=== PATIENT | male | born 1955 | race Caucasian/White ===

== ENCOUNTER 2017-03-27 13:28 | Emergency (ER) | payer OTHER ==
[~2017-03-27] VITALS: Ht 172.7 cm; Wt 83.9 kg
[2017-03-27 13:43] LABS: HEMOGLOBIN 15.6 g/dL (14.1-18.0)
--- NOTE | 2017-03-27 13:51 | Emergency Room Report ---
See Addendum History of Present Illness Time Seen by 1340 Presenting Problem in Triage Pt arrived:Walked Presenting Problem:PT REPORTS L SIDED LOWER ABD PAIN WITH FREQUENT URINATION. 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 N Clinical Suspician of Infection? N Mental Status: 1 - Regular (Normal Baseline) Sepsis Risk:Low Sepsis Risk Have you (or family members/close friends) recently traveled outside the [place]? N If Yes, where/when: Have you had exposure to infectious disease within the past month? N TB? Other? Specify: Source patient, RN notes reviewed Exam Limitations no limitations Comment Comes to the ED with LLQ abdominal pain that started yesterday and is worse today. He has had many stones and passed most but has had lithotripsy X 5 He also has type 2 DM, HTN, and CAD Cardiac Chest Pain Chest pain indicative of cardiac No ALLERGIES Coded Allergies: Penicillins (Intermediate, I-RASH 07/03/16) Home Medications Active Scripts PROMETHAZINE HCL (Phenergan 25MG Tab (Geq)) 25 MG PO Q4HP PRN nausea/vomiting #20 TAB Prov: 10/15/13 Reported Medications Aspirin (Aspirin EC) 81 MG PO DAILY #30 CLOPIDOGREL BISULFATE (Clopidogrel) 75 MG PO DAILY #30 Atorvastatin Calcium 80 MG PO QHS #30 METFORMIN HCL (Metformin) 500 MG PO BIDD LISINOPRIL (Lisinopril) 10 MG PO DAILY Nifedipine (Nifedipine ER) 60 MG PO DAILY #30 Carvedilol 3.125 MG PO BIB #60 Famciclovir (Famciclovir 500MG) 500 MG PO BID PRN OUTBREAK Naproxen Sodium (Aleve) 220 MG PO BID Acetaminophen (Arthritis Pain) 650 MG PO BID Diclofenac Sodium 100 GM TP QID History Medical History General CAD? Yes Angina: No DC: Yes Hypertension? Yes Hyperlipidemia? Yes CHF? No DVT? No PE? No COPD? No Asthma? No Anemia? No GERD? No Gastric ulcers? No GI Bleed? No Hernia? No Thyroid Problems? No Hypothyroidism? No CVA? No Seizures? No Diabetes? Yes Insulin Dependent: No Insulin Pump: No Home FSBS? No Renal Insuffiency? No End Stage Renal Disease? No UTI? No Stones? Yes BPH? No GB Disease: No Nephritic Syndrome? No Asplenia? No Hepatitis? No Sickle Cell Disease? No Arthritis? No Migraines? No Cataracts? No Glaucoma? No MRSA? No HIV? No TB? No Anxiety? No Depression? No Cancer? No More? No Immunization Hx DT/Tetanus 1-4 YRS Flu NEVER Pneumonia NEVER Surgical Hx Previous Surgery?Y LITHOTRIPSY Orthopedic HEART CATH 11/02 HEART STENTS R CORONARY ARTERY Family History Family Hx Diabetes Yes CAD Yes Hypertension Yes Hyperlipidemia No Cancer Yes TB No Social History Smoking Hx Smoker: Current Every Day Smoker Tobacco: Yes Type Cigarettes Packs/day < 1 Pack Alcohol Alcohol: No Review of Systems All Other Systems Reviewed and Negative Constitutional see HPI Cardiovascular see HPI Gastrointestinal see HPI Genitourinary see HPI. Physical Exam Vital Signs Vital Signs Date Time Temp Pulse Resp B/P Pulse O2 O2 Flow FiO2 Ox Delivery Rate 03/27 1438 18 03/27 1343 18 03/27 1339 18 03/27 1328 97.6 74 18 175/87 97 General Appearance moderate distress (with left flank pain) Respiratory Status No: respiratory distress. Cardiovascular normal exam, regular rate/rhythm Gastrointestinal left flank and LLQ pain Neurologic alert, manager clinical applications II-XII nml as tested Medical Decision Making LABS/Meds/Orders Pt receiving controlled substance in ED? Yes Ry was queried for this patient? Yes Reference #: [id number] Risks/benefits of using a controlled substance for treatment were not discussed w/pt Results/Orders Laboratory Tests 03/27/17 1325: Sodium 142, Potassium 3.9, Chloride 105, Carbon Dioxide 26, BUN 30 H, Creatinine 1.6 H, Estimated Creat Clear 57, Estimated GFR (MDRD) 44, Glucose 193 H, Calcium 10.1, Total Bilirubin 0.6, AST 19, ALT 58, Alkaline Phosphatase 87, Total Protein 7.6, Albumin 4.6, Globulin 3.0, Albumin/Globulin Ratio 1.5, WBC 12.9 H, RBC 4.94, Hgb 15.6, Hct 47.0, MCV 95.2, RDW 12.3, Plt Count 174, MPV 7.6, Gran % 84.6 H, Gran # 10.9 H, Lymphocytes % 8.0 L, Monocytes % 5.0, Eosinophils % 2.1, Basophils % 0.3, Lymphocytes # 1.0, Monocytes # 0.7, Eosinophils # 0.3, Basophils # 0.0, PUBS MCHC 33.2, MCH 31.6 H Current Medication Orders Sig/Richa Start time Last Medication Dose Route Stop Time Status Admin Hydromorphone HCl 1 MG ONCE ONE 03/27 1445 AC 03/27 IV 03/27 1446 1438 Promethazine HCl 12.5 MG ONCE ONE 03/27 1445 AC 03/27 IV 03/27 1446 1436 Sodium Chloride 25 ML ONCE ONE 03/27 1445 AC 03/27 IV 03/27 1459 1439 Sodium Chloride 1,000 ML .Q1H1M 03/27 1445 AC 03/27 IV 03/27 1545 1436 Sodium Chloride 10 ML PRN PRN 03/27 1445 AC IV 03/28 1432 Promethazine HCl 0 .STK-MED ONE 03/27 1434 DC .ROUTE Sodium Chloride 25 ML .STK-MED ONE 03/27 1434 DC IV Sodium Chloride 1,000 ML .STK-MED ONE 03/27 1434 DC IV Hydromorphone HCl 0 .STK-MED ONE 03/27 1433 DC .ROUTE Ketorolac 30 MG ONCE ONE 03/27 1345 DC 03/27 Tromethamine IV 03/27 1346 1339 Morphine Sulfate 4 MG ONCE ONE 03/27 1345 DC 03/27 IV 03/27 1346 1343 Morphine Sulfate 0 .STK-MED ONE 03/27 1342 DC .ROUTE Ondansetron HCl 4 MG ONCE ONE 03/27 1330 DC 03/27 IV 03/27 1331 1330 Sodium Chloride 10 ML PRN PRN 03/27 1330 AC IV 03/28 1330 Sodium Chloride 1,000 ML .Q1H1M 03/27 1330 DC 03/27 IV 03/27 1430 1330 Sodium Chloride 10 ML PRN PRN 03/27 1330 AC IV 03/28 1330 Orders Procedure Date/time Status DIET-NOTHING BY MOUTH 03/[address] ABD/PELVIS REQ 03/27 1331 Complete IV SALINE LOCK 03/27 1331 Active URINALYSIS/COMPLETE 03/27 1331 Active CBC WITH AUTO DIFF 03/27 133 Complete CHEM 12 PROFILE 03/27 133 Complete Departure Departure Time of Disposition 1435 Disposition DC Home or Self Care(routine) Clinical Impression Primary Impression: Nephrolithiasis Secondary Impressions: Chronic kidney disease, stage 3, Ureterolithiasis Condition STABLE Patient Instructions DI for Kidney Stones, Kidney Stones (Alternative Therapy), Kidney Stones -- Adult Additional Instructions Drink lots of fluids and take meds as directed. If pain will not go away, return to the ED immediately or followup with Kidney specialist, Urologist Discharge Counseling Counseled pt/family regarding diagnosis, test results, medications/RX, home care, follow up needs Prescriptions Current Visit Scripts TAMSULOSIN HCL (Flomax) 0.4 MG PO QHS #30 CAP OXYCODONE HCL (Oxycodone) 5 MG NG Q4HP PRN pain #18 TAB ED Critical Care Critical Care No If Critical Care minutes are documented, the time involved in the performance of seperately reportable procedures was not counted toward critical care time documented. I directly delivered medical care to this critically ill and/or injured patient. Timely evaluation and treatment was necessary to address the significant organ system(s) dysfunction present in this patient. at 1447
--- NOTE | 2017-03-27 14:17 | RADIOLOGY REPORT PS360 ---
CT ABD PELVIS W/O CONTRAST COMPARISON: CT scan abdomen pelvis stone protocol 07/03/2016 HISTORY: Lower quadrant pain, history of kidney stones TECHNIQUE: Altered axial scans obtained from hemidiaphragms the pelvic floor and were performed without IV or oral contrast. Sagittal coronal reformats were evaluated as well. FINDINGS: The lower lung kasper are clear. The liver spleen and pancreas appear grossly normal. The stomach is somewhat distended with ingested food particles and fluid but otherwise appears normal. Gallbladder is normal. The left adrenal gland is normal, there is a small hypodense cystic-appearing lesion right adrenal gland and this was noted previously. The kidneys are normal in size but there is mild swelling of the left kidney. There is prominent stranding of Gerota's fascia around the left kidney. There are multiple nonobstructing calculi in the lower mid and upper pole calyces. There is moderate hydronephrosis and hydroureter down to the level of the L4 vertebral body where there are 2 calculi largest measuring 8 mm, the smaller one which is superior measuring 5 mm. There are tiny nontracking calculi in the right kidney. Small bowel is normal, the appendix is normal. There is minimal scattered stool throughout the colon. There is mild diffuse diverticulosis of the sigmoid colon without evidence of diverticulitis. The urinary bladder and prostate appear normal. There is a small high density focus in the proximal small bowel loop right side probably an undigested medication. There are prominent hypertrophic facet changes of lower lumbar spine involving levels L3-4 through L5-S1 bilaterally. IMPRESSION: Moderately severe hydronephrosis and hydroureter left side secondary to 2 calculi in the proximal left ureter at approximately the level of the L4 vertebral body. Several tiny nonobstructing calculi noted right kidney 2. Mild diffuse diverticulosis sigmoid colon without diverticulitis
[2017-03-27 16:08] LABS: URINE BILIRUBIN - DIPSTICK NEGATIVE (NEG); URINE BLOOD TRACE-INTACT (NEG)
[2017-03-27 16:32] LABS: URINE SQUAMOUS CELLS OCC #/hpf (OCC)
[2017-03-27 17:24] VITALS: BP 125/62
--- OUTSIDE RECORDS SUMMARY | 2017-04-06 03:45 | External Medical Summary Rpt ---
Author Author [facility] Organization [facility] Address Unknown Phone Unavailable Care Team Providers Care Landing Man Name Role Phone Amaury ATKINSON PCP [phone] Encounter [facility] Date(s): 07/14/16 - 07/14/16 [facility] [address] [place] [id number]- Discharge Disposition: OP Self Care or Home Attending Physician: CHANTLE ALEX MD-URO Admitting Physician: CHANTEL ALEX MD-URO Referring Physician: CHANTEL ALEX MD-URO Reason for Visit CALCULUS OF KIDNEY Vital Signs No data available for this section Problem List Condition Effective Status Health Informant Dates Status Diabetes(Con Active firmed) HTN Active (hypertensio n)(Confirmed ) Kidney Active stones(Confi rmed) Allergies, Adverse Reactions, Alerts Substance Reaction Severity Status penicillin dizziness Active dizziness Medications No data available for this section Results No data available for this section Immunizations No data available for this section Procedures No data available for this section Social History Social History Response Type Smoking Status Current every day smoker Assessment and Plan No data available for this section Hospital Discharge Instructions No data available for this section
--- OUTSIDE RECORDS SUMMARY | 2017-04-06 03:45 | External Medical Summary Rpt ---
Author Author [facility] Organization [facility] Address Unknown Phone Unavailable Care Team Providers Care Freelance Patternmaker Name Role Phone Amaury ATKINSON PCP [phone] Encounter [facility] Date(s): 07/22/16 - 07/22/16 [facility] [address] [place] [id number]- Discharge Disposition: OP Self Care or Home Attending Physician: CHANTEL ALEX MD-URO Admitting Physician: CHANTEL ALEX MD-URO [...]
--- OUTSIDE RECORDS SUMMARY | 2017-04-06 03:45 | External Medical Summary Rpt ---
Author Author [facility] Organization [facility] Address Unknown Phone Unavailable Care Team Providers Care Support Clerk Name Role Phone Amaury ATKINSON PCP [phone] Encounter [facility] Date(s): 07/14/16 - 07/14/16 [facility] [address] [place] [address]- Discharge Disposition: OP Self Care or Home [...]
--- OUTSIDE RECORDS SUMMARY | 2017-04-06 03:45 | External Medical Summary Rpt ---
Author Author [facility] Organization [facility] Address Unknown Phone Unavailable Care Team Providers Care Street Engineer Name Role Phone Amaury ATKINSON PCP [phone] Encounter [facility] Date(s): 07/22/16 - 07/22/16 [facility] [address] [place] [address]- Discharge Disposition: OP Self Care or Home [...]
--- OUTSIDE RECORDS SUMMARY | 2017-04-06 03:47 | External Medical Summary Rpt | CCD ---
Author Author , GEORGE VAZQUEZ Address Unknown Phone [email or web address] Care Team Providers Care Production Support Manager Name Role Phone Chad Mariscal III, MD, Chad Escamilla III, MD Purpose Continuity of Care Document - 05-30-2013 through 2016 Problems Code Diagnosis DOS Provider Status 592.0 592.0 05-30-2013 Lazaro CALCIVAN OF [facility] Allergies, Adverse Reactions, Alerts Type Drug Allergy Adverse Reaction to Substance Substance Reaction Severity Penicillin Unknown Unknown Penicillin G Unknown Unknown Medications Na ND Rx Da Fi Fi Am Da Di Ph RX Ph St me C No te ll ll ou ys ag ar # ys at rm s nt no ma ic us Or Da si cy ia de te s n re d Sa 63 12 0 No li 80 -0 ne 70 5- Lo 10 20 ng Fl 07 13 er us 5 h Ac 10 ti ML ve Sy ri ng e KE 00 12 0 No TO 40 -0 RO 93 5- Lo LA 79 20 ng C 50 13 er 30 1 Ac MG ti /M ve L AL ON 00 12 0 No DA 64 -0 NS 16 5- Lo ET 08 20 ng RO 02 13 er N 5 HC Ac L ti 4 ve MG /2 ML AL Vital Signs 05-30-2013 13:44 Name Value Interpretat Reference Comment ion Range BP 88 mm[Hg] Diastolic BP Systolic 147 mm[Hg] Heart 94 /min Rate/Pulse O2% 94 % Respiratory 20 /min Rate 05-30-2013 11:57 Name Value Interpretat Reference Comment ion Range BP 95 mm[Hg] Diastolic BP Systolic 167 mm[Hg] Heart 82 /min Rate/Pulse O2% 96 % Respiratory 18 /min Rate Results Labs Lab Lab Date Result Refere Interp Status Commen Order Detail nces retati t Range on Urinalysis dipstick W Reflex Microscopic panel in Urine (03-27-2017 16:00) Bacteri TRACE O complet a 017 ed [Presen 16:00 ce] in Urine sedimen t by Light microsc opy Erythro 5-10 0 complet cytes 017 ed [Presen 16:00 ce] in Urine sedimen t by Light microsc opy Epithel OCC OCC complet ial 017 ed cells.s 16:00 quamous [Presen ce] in Urine sedimen t by Microsc opy high power field Urinalysis dipstick W Reflex Microscopic panel in Urine (03-27-2017 16:00) Appeara CLEAR CLEAR complet nce of 017 ed Urine 16:00 Bilirub NEGATIV NEG complet in 017 E ed [Presen 16:00 ce] in Urine by Test strip Erythro TRACE-I NEG complet cytes 017 NTACT ed [Presen 16:00 ce] in Urine Color STRAW YELLOW complet of 017 ed Urine 16:00 Ketones NEGATIV NEG complet 017 E ed [Presen 16:00 ce] in Urine by Automat ed test strip Mucus NEGATIV NEG complet [Presen 017 E ed ce] in 16:00 Urine sedimen t by Light microsc opy Nitrite NEGATIV NEG complet 017 E ed [Presen 16:00 ce] in Urine by Test strip Urobili 0.2 NEG complet nogen 017 ed [Presen 16:00 ce] in Urine by Test strip Bas Metab 1999 Pnl SerPl (01-04-2017 11:10) Comment: Meter: [id number] Marketing Automation Manager: [id number] [place] Glucose 122 70-130 complet BldC 017 mg/dL ed Glucomt 11:10 r-mCnc ACT Bld (01-04-2017 10:35) ACT Bld 301 82-152 complet 017 Seconds ed 10:35 Comment: Serial Number: [id number]: [id number] ACT Bld (01-04-2017 10:22) ACT Bld 257 82-152 complet 017 Seconds ed 10:22 Comment: Serial Number: [id number]: [id number] Bas Metab 2000 Pnl SerPl (01-04-2017 07:38) Comment: Meter: [id number] Marketing Automation Manager: [id number] [place] Glucose 117 70-130 complet BldC 017 mg/dL ed Glucomt 07:38 r-mCnc Hgb A1c Bld (01-04-2017 07:22) Comment: The [place] [employer] recommends maintenance of Hemoglobin A1C at 7.0% or lower. Goals for Hemoglobin A1C reduction may need to be modified if hypoglycemia is a problem. Hgb A1c 7.30 % 4.80-5. complet MFr 017 60 ed Bld 07:22 Lipid pnl with direct LDL SerPl (01-04-2017 07:22) Comment: Cholesterol Reference Ranges: Comment: Desirable < 200 mg/dL Comment: Borderline 200-239 mg/dL Comment: High Risk > 239 mg/dL Comment: Comment: Triglyceride Reference Ranges: Comment: Normal < 150 mg/dL Comment: Borderline 150-199 mg/dL Comment: High 200-499 mg/dL Comment: Very High > 499 mg/dL Comment: Comment: HDL Reference Ranges: Comment: Low < 40 mg/dL Comment: High > 59 mg/dL Comment: Comment: LDL Reference Ranges: Comment: Optimal < 100 mg/dL Comment: Near Optimal 100-129 mg/dL Comment: Borderline 130-159 mg/dL Comment: High 160-189 mg/dL Comment: Very High > 189 mg/dL Articho 28 0-130 complet ke IgE 017 mg/dL ed Qn 07:22 HDLc 28 40-60 complet SerPl-m 017 mg/dL ed Cnc 07:22 Trigl 176 0-150 complet SerPl-m 017 mg/dL ed Cnc 07:22 Cholest 2 75 0-200 complet 017 mg/dL ed SerPl-m 07:22 Cnc Comp Metab 1997 Pnl SerPl (01-04-2017 07:22) Comment: National Kid[employer] Guidelines Comment: Comment: Stage Description GFR Comment: 1 Normal or High 90+ Comment: 2 Mild decrease 60-89 Comment: 3 Moderate decrease 30-59 Comment: 4 Severe decrease 15-29 Comment: 5 Kidney failure <15 Anion 3.0 3.0-11. complet Gap3 017 mmol/L 0 ed SerPl-s 07:22 Cnc BUN/Cre 20.0 7.0-25. complet at 017 0 ed SerPl 07:22 Albumin 1.7 1.5-2.5 complet /Glob 017 g/dL ed SerPl 07:22 Globuli 2.5 complet n Ur 017 gm/dL ed Elph-mC 07:22 nc GFR/BSA 62 >60 complet .pred 017 mL/min/ ed SerPl 07:22 1.73 MDRD-Ar VRat Bilirub 0.5 0.3-1.2 complet 017 mg/dL ed SerPl-m 07:22 Cnc ALP 88 U/L 25-100 complet SerPl-c 017 ed Cnc 07:22 AST 43 U/L 0-33 complet SerPl-c 017 ed Cnc 07:22 ALT 55 U/L 7-40 complet SerPl w 017 ed 07:22 P-5'-P- cCnc Albumin 4.30 3.20-4. complet 017 g/dL 80 ed SerPl-m 07:22 Cnc Prot 6.8 5.7-8.2 complet SerPl-m 017 g/dL ed Cnc 07:22 Calcium 10.0 8.7-10. complet 017 mg/dL 4 ed XXX-sCn 07:22 c CO2 26.0 20.0-31 complet SerPl-s 017 mmol/L .0 ed Cnc 07:22 Chlorid 113 99-109 complet e 017 mmol/L ed SerPl-s 07:22 Cnc Potassi 4.2 3.5-5.5 complet um 017 mmol/L ed Bld-sCn 07:22 c Sodium 142 132-146 complet Bld-sCn 017 mmol/L ed c 07:22 Creat 1.20 0.60-1. complet Bld-mCn 017 mg/dL 30 ed c 07:22 BUN 24 9-23 complet Bld-mCn 017 mg/dL ed c 07:22 Glucose 127 70-100 complet 017 mg/dL ed Bld-mCn 07:22 c CBC (hemogram) Bld Auto (01-04-2017 07:22) Platele 01-04-2 136 150-450 complet t # Bld 017 10*3/mm ed Auto 07:22 3 PMV Bld 01-04-2 10.2 fL 6.0-12. complet Auto 017 0 ed 07:22 RDW RBC 01-04-2 45.7 fl 37.0-54 complet Auto 017 .0 ed 07:22 RDW RBC 12-2 12.5 % 11.3-14 complet 017 .5 ed Auto-Rt 07:22 o MCHC 01-04-2 32.9 32.0-36 complet RBC 017 g/dL .0 ed Auto-mC 07:22 nc MCH RBC 01-04- 32.6 pg 27.0-31 complet Qn 017 .0 ed Auto 07:22 MCV RBC 01-04-2 99.2 fL 80.0-99 complet Auto 017 .0 ed 07:22 Hct VFr 01-04-2 46.8 % 38.9-50 complet Bld 017 .9 ed Auto 07:22 Hgb 01-04-2 15.4 13.1-17 complet Bld-mCn 017 g/dL .5 ed c 07:22 RBC # 12-2 4.72 4.20-5. complet Bld 017 10*6/mm 76 ed Auto 07:22 3 WBC 01-04-2 5.88 3.50-10 complet nRBC 017 10*3/mm .80 ed cor # 07:22 3 Bld Bas Metab 2000 Pnl SerPl (06-24-2016 20:54) Comment: Meter: [id number] Marketing Automation Manager: [id number] Zachary Zuñiga B Glucose 128 70-130 complet BldC 016 mg/dL ed Glucomt 20:54 r-mCnc Bacteria Ur Cult (06-24-2016 06:10) Bacteri [id number] complet a XXX 016 9 ed Aerobe 06:10 Normal Cult waqas SCT Comment: 20,000-30,000 CFU/mL Normal Urogenital Waqas UA Dipstick Pnl Ur (06-24-2016 06:10) Urobili 1.0 0.2 - complet nogen 016 E.U./dL 1.0 ed Ur Ql 06:10 E.U./dL Strip Nitrite [id number] Negativ complet Ur Ql 016 09 e ed Strip 06:10 Negativ e SCT Leukocy [id number] Negativ complet te 016 00 e ed esteras 06:10 Moderat e Ur Ql e number Strip.a SCT uto Prot Ur 100 Negativ complet Ql 016 mg/dL e ed Strip 06:10 (2+) Hgb Ur [id number] Negativ complet Ql 016 01 e ed Strip.a 06:10 Large uto SCT Bilirub Moderat Negativ complet Ur Ql 016 e (2+) e ed Strip 06:10 Ketones 15 Negativ complet Ur Ql 016 mg/dL e ed Strip 06:10 (1+) Glucose [id number] Negativ complet Ur 016 06 e ed Strip-m 06:10 Trace Cnc SCT Sp Gr 1.069 1.001-1 complet Ur 016 .030 ed Strip 06:10 pH Ur 6.0 5.0-8.0 complet Strip.a 016 ed uto 06:10 Clarity 1272059 Clear complet Ur 016 02 ed 06:10 Turbid SCT Color [id number] Yellow, complet Ur 016 00 Red Straw ed 06:10 color SCT UA Microscopic Pnl # Ur Auto (06-24-2016 06:10) Ref lab Manual complet test 016 Light ed method 06:10 Microsc opy Hyaline 7-12 0-6 complet Casts 016 /LPF ed Ur Ql 06:10 Auto Squamou 0-2 None complet s 016 /HPF Seen, ed #/area 06:10 0-2 UrnS HPF WBC Ur 3-5 None complet Ql Auto 016 /HPF Seen ed 06:10 RBC # 06-24- Unable None complet Ur 016 to Seen, ed 06:10 determi 0-2 ne due to loaded field /HPF Bacteri [id number] None complet a Ur Ql 016 06 Seen, ed Auto 06:10 Trace Trace SCT /HPF Lipid pnl with direct LDL SerPl (06-24-2016 03:27) Comment: Cholesterol Reference Ranges: Comment: Desirable < 200 mg/dL Comment: Borderline 200-239 mg/dL Comment: High Risk > 239 mg/dL Comment: Comment: Triglyceride Reference Ranges: Comment: Normal < 150 mg/dL Comment: Borderline 150-199 mg/dL Comment: High 200-499 mg/dL Comment: Very High > 499 mg/dL Comment: Comment: HDL Reference Ranges: Comment: Low < 40 mg/dL Comment: High > 59 mg/dL Comment: Comment: LDL Reference Ranges: Comment: Optimal < 100 mg/dL Comment: Near Optimal 100-129 mg/dL Comment: Borderline 130-159 mg/dL Comment: High 160-189 mg/dL Comment: Very High > 189 mg/dL Articho 102 0-130 complet ke IgE 016 mg/dL ed Qn 03:27 HDLc 39 40-60 complet SerPl-m 016 mg/dL ed Cnc 03:27 Trigl 61 0-150 complet SerPl-m 016 mg/dL ed Cnc 03:27 Cholest 148 0-200 complet 016 mg/dL ed SerPl-m 03:27 Cnc Troponin I SerPl-mCnc (06-24-2016 03:27) Comment: Ultra Troponin I Reference Range: Comment: Comment: <=0.039 ng/mL: Negative Comment: 0.04-0.779 ng/mL: Indeterminate Range. Suspicious of DE. Clinical correlation required. Comment: >=0.78 ng/mL: Consistent with myocardial injury. Clinical correlation required. Troponi 0.066 <=0.040 complet n I 016 ng/mL ed SerPl-m 03:27 Cnc Phosphate SerPl-mCnc (06-24-2016 03:27) Phospha 3.1 2.4-5.1 complet te 016 mg/dL ed SerPl-m 03:27 Cnc Mg Ionized SerPl-mCnc (06-24-2016 03:27) Magnesi 2.0 1.3-2.7 complet um 016 mg/dL ed SerPl-m 03:27 Cnc CBC W Diff pnl,unspecified Bld (06-24-2016 03:27) Monocyt 12-30-2 0.49 0.00-1. complet es # 016 10*3/mm 00 ed Bld 03:27 3 Auto Lymphoc 30-2 1.00 0.60-4. complet ytes # 016 10*3/mm 80 ed Bld 03:27 3 Auto Neutrop 30-2 8.88 1.50-8. complet hils # 016 10*3/mm 30 ed Bld 03:27 3 Auto Imm 30-2 0.6 % 0.0-0.6 complet Granulo 016 ed cytes 03:27 NFr Bld Basophi 06-24-2 0.2 % 0.0-1.0 complet ls NFr 016 ed Bld 03:27 Auto Eosinop 06-24-2 1.0 % 0.0-3.0 complet hil NFr 016 ed Bld 03:27 Auto Monocyt 06-24-2 4.6 % 0.0-12. complet es NFr 016 0 ed Bld 03:27 Auto Lymphoc 30-2 9.5 % 24.0-44 complet ytes 016 .0 ed NFr Bld 03:27 Auto Neutrop 06-24-2 84.1 % 41.0-71 complet hils 016 .0 ed NFr Bld 03:27 Auto Platele 06-24-2 128 150-450 complet t # Bld 016 10*3/mm ed Auto 03:27 3 PMV Bld 2 10.2 fL 6.0-12. complet Auto 016 0 ed 03:27 RDW RBC 06-24-2 44.0 fl 37.0-54 complet Auto 016 .0 ed 03:27 RDW RBC 30-2 12.6 % 11.3-14 complet 016 .5 ed Auto-Rt 03:27 o MCHC 06-24-2 34.2 32.0-36 complet RBC 016 g/dL .0 ed Auto-mC 03:27 nc MCH RBC 06-24-2 32.8 pg 27.0-31 complet Qn 016 .0 ed Auto 03:27 MCV RBC 06-24-2 96.0 fL 80.0-99 complet Auto 016 .0 ed 03:27 Hct VFr 06-24-2 48.6 % 38.9-50 complet Bld 016 .9 ed Auto 03:27 Hgb 30-2 16.6 13.1-17 complet Bld-mCn 016 g/dL .5 ed c 03:27 RBC # 12-30-2 5.06 4.20-5. complet Bld 016 10*6/mm 76 ed Auto 03:27 3 WBC 30-2 10.56 3.50-10 complet nRBC 016 10*3/mm .80 ed cor # 03:27 3 Bld Imm 1230-2 0.06 0.00-0. complet Granulo 016 10*3/mm 03 ed cytes # 03:27 3 Bld Basophi 30-2 0.02 0.00-0. complet ls # 016 10*3/mm 20 ed Bld 03:27 3 Auto Eosinop 30-2 0.11 0.10-0. complet hil # 016 10*3/mm 30 ed Bld 03:27 3 Auto Hgb A1c Bld (06-24-2016 03:27) Comment: The [place] [employer] recommends maintenance of Hemoglobin A1C at 7.0% or lower. Goals for Hemoglobin A1C reduction may need to be modified if hypoglycemia is a problem. Hgb A1c 8.70 % 4.80-5. complet MFr 016 60 ed Bld 03:27 Bas Metab 2000 Pnl SerPl (06-24-2016 03:27) Comment: National Kidney Foundation Guidelines Comment: Comment: Stage Description GFR Comment: 1 Normal or High 90+ Comment: 2 Mild decrease 60-89 Comment: 3 Moderate decrease 30-59 Comment: 4 Severe decrease 15-29 Comment: 5 Kidney failure <15 Anion 06-24- 3.0 3.0-11. complet Gap3 016 mmol/L 0 ed SerPl-s 03:27 Cnc BUN/Cre 26.7 7.0-25. complet at 016 0 ed SerPl 03:27 GFR/BSA 86 >60 complet .pred 016 mL/min/ ed SerPl 03:27 1.73 MDRD-Ar VRat Calcium 9.1 8.7-10. complet 016 mg/dL 4 ed XXX-sCn 03:27 c CO2 28.0 20.0-31 complet SerPl-s 016 mmol/L .0 ed Cnc 03:27 Chlorid 105 99-109 complet e 016 mmol/L ed SerPl-s 03:27 Cnc Potassi 4.1 3.5-5.5 complet um 016 mmol/L ed Bld-sCn 03:27 c Sodium 136 132-146 complet Bld-sCn 016 mmol/L ed c 03:27 Creat 0.90 0.60-1. complet Bld-mCn 016 mg/dL 30 ed c 03:27 BUN 24 9-23 complet Bld-mCn 016 mg/dL ed c 03:27 Glucose 161 70-100 complet 016 mg/dL ed Bld-mCn 03:27 c ACT Bld (06-24-2016 02:26) ACT Bld 250 82-152 complet 016 Seconds ed 02:26 Comment: Serial Number: [id number] Marketing Automation Manager: [id number] Basic metabolic 2000 panel - Serum or Plasma (12-19-2015 18:40) Comment: er 2 [place] Comment: Anion = 12.1 8.0 TO complet gap in 016 mmol/L 16.0 ed Serum 18:40 or Plasma Calcula = 85 complet jaime and 016 mg/dL ed 18:40 derived values (set) Creatin = 0.96 0.66 TO complet ine 016 mg/dL 1.25 ed [Mass/v 18:40 olume] in Blood Carbon = 22 22 TO complet dioxide 016 mmol/L 30 ed , total 18:40 [Moles/ volume] in Blood Chlorid = 112 98 TO complet e 016 mmol/L 107 ed [Moles/ 18:40 volume] in Serum or Plasma Sodium = 4.3 3.4 TO complet and 016 mmol/L 5.0 ed Potassi 18:40 um panel [Moles/ volume] - Serum or Plasma Sodium = 146 137 TO complet and 016 mmol/L 145 ed Potassi 18:40 um panel [Moles/ volume] - Serum or Plasma Urea = 25 9 TO 20 complet nitroge 016 mg/dL ed n 18:40 [Mass/v olume] in Blood Glucose = 130 74 TO complet 016 mg/dL 106 ed [Mass/v 18:40 olume] in Serum or Plasma Calcium = 9.8 8.4 TO complet 016 mg/dL 10.2 ed [Mass/v 18:40 olume] correct ed for total protein in Serum or Plasma CBC W Reflex Manual Differential panel - Blood (12-19-2015 18:40) Comment: er 2 [place] Comment: CBC W = 10.0 7.1 TO complet Auto 016 fl 10.4 ed Differe 18:40 ntial panel - Blood Platele = 158 130 TO complet ts 016 10*3/ul 450 ed [#/volu 18:40 me] in Blood by Automat ed count Erythro = 12.5 11.5 TO complet cyte 016 % 14.5 ed distrib 18:40 ution width [Ratio] by Automat ed count Erythro = 43.2 35.1 TO complet cyte 016 fL 43.9 ed distrib 18:40 ution width [Ratio] by Automat ed count CBC W = 34.1 33 TO complet Auto 016 g/dl 37 ed Differe 18:40 ntial panel - Blood CBC W = 32.1 27 TO complet Auto 016 pg 31 ed Differe 18:40 ntial panel - Blood CBC W = 94.2 80 TO complet Auto 016 fl 94 ed Differe 18:40 ntial panel - Blood Hematoc = 54.0 42 TO complet rit 016 % 52 ed [Volume 18:40 Fractio n] of Blood by Automat ed count Hemoglo = 18.4 14 TO complet bin 016 G/DL 18 ed A/Hemog 18:40 lobin.t otal in Blood Erythro = 5.73 4.70 TO complet cytes 016 10*6UL 6.10 ed [#/volu 18:40 me] in Blood Nucleat = 0.00 0.0 TO complet ed 016 10*3 0.012 ed erythro 18:40 cytes [#/volu me] in Blood by Automat ed count Granulo = 0.02 0.01 TO complet cytes 016 10*3 0.02 ed Immatur 18:40 e [#/volu me] in Blood by Automat ed count Basophi = 0.07 0.0 TO complet ls 016 10*3 0.1 ed [#/volu 18:40 me] in Blood by Automat ed count Eosinop = 0.19 0.0 TO complet hils 016 10*3 0.2 ed [#/volu 18:40 me] in Blood by Automat ed count Monocyt = 0.51 0.3 TO complet es 016 10*3 0.8 ed [#/volu 18:40 me] in Blood by Automat ed count Lymphoc = 0.98 1.3 TO complet ytes 016 10*3 2.9 ed [#/volu 18:40 me] in Blood by Automat ed count Neutrop = 5.99 2.2 TO complet hils 016 10*3 4.8 ed [#/volu 18:40 me] in Blood by Automat ed count Complet = 0.0 % 0 TO complet e blood 016 0.2 ed count 18:40 (hemogr am) panel - Blood by Automat ed count Granulo = 0.3 % 0 TO complet cytes 016 0.5 ed Immatur 18:40 e/100 leukocy valeriy in Blood by Automat ed count Basophi = 0.9 % 0.2 TO complet ls/Leuk 016 1.0 ed ocytes 18:40 [Pure number fractio n] in Blood by Automat ed count Eosinop = 2.4 % 0.9 TO complet hils/10 016 2.9 ed 0 18:40 leukocy valeriy in Blood Monocyt = 6.6 % 5.5 TO complet es/100 016 11.7 ed leukocy 18:40 valeriy in Blood by Automat ed count Lymphoc = 12.6 20.5 TO complet ytes/10 016 % 45.5 ed 0 18:40 leukocy valeriy in Blood by Automat ed count Neutrop = 77.2 43 TO complet hils/10 016 % 65 ed 0 18:40 leukocy valeriy in Blood by Automat ed count Leukocy = 7.76 4.7 TO complet valeriy 016 10*3/UL 10.8 ed [#/volu 18:40 me] in Blood URINALYSIS/COMPLETE (05-30-2013 12:55) URINE YELLOW YELLOW complet COLOR 013 ed 12:55 URINE 05-30-2 CLEAR CLEAR complet APPEARA 013 ed NCE 12:55 URINE 3+ NEG complet GLUCOSE 013 ed - 12:55 DIPSTIC K URINE 05-30- NEGATIV NEG complet BILIRUB 013 E ed IN - 12:55 DIPSTIC K URINE 05-30-2 TRACE NEG complet KETONE 013 mg/dL ed 12:55 URINE 05-30- 1.025 1.005-1 complet SPECIFI 013 UNK .030 ed C 12:55 GRAVITY URINE 2+ NEG complet BLOOD 013 ed 12:55 URINE 05-30- 6.0 UNK 5.0-8.5 complet PH 013 ed 12:55 URINE 05-30- NEGATIV NEG complet PROTEIN 013 E mg/dL ed - 12:55 DIPSTIC K URINE 05-30-2 0.2 NEG complet UROBILI 013 E.U./dL ed NOGEN - 12:55 DIPSTIC K URINE 05-30-2 NEGATIV NEG complet NITRATE 013 E ed - 12:55 DIPSTIC K URINE 05-30-2 NEGATIV NEG complet LEUK 013 E ed ESTERAS 12:55 E URINE 05-30-2 TNTC 0 complet RBC 013 rbc/hpf ed 12:55 URINE 05-30-2 5-10 OCC complet SQUAMOU 013 #/hpf ed S CELLS 12:55 URINE 05-30-2 1+ O complet BACTERI 013 ed A 12:55 COMPREHENSIVE METABOLIC PANEL (05-30-2013 11:20) Glucose 05-30- 175 74-106 complet 013 mg/dL ed Bld-mCn 11:20 c BUN 27 7-18 complet Bld-mCn 013 mg/dL ed c 11:20 Creat 1.5 0.8-1.3 complet SerPl-m 013 mg/dL ed Cnc 11:20 Creat 72 50-200 complet Cl 013 ML/MIN ed predict 11:20 ed SerPl C-G-vRa te GFR/BSA 48 Greater complet .pred 013 ML/MIN than ed SerPl 11:20 60 Schwart z-vRate Sodium 138 136-145 complet SerPl-s 013 mmoL/L ed Cnc 11:20 Potassi 3.9 3.5-5.1 complet um 013 mmoL/L ed SerPl-s 11:20 Cnc Chlorid 104 98-107 complet e 013 mmoL/L ed SerPl-s 11:20 Cnc CO2 26 21.0-32 complet SerPl-s 013 mmoL/L .0 ed Cnc 11:20 Calcium 9.3 8.5-10. complet 013 mg/dL 1 ed SerPl-m 11:20 Cnc Prot 7.0 6.4-8.2 complet SerPl-m 013 gm/dL ed Cnc 11:20 Albumin 3.9 3.4-5.0 complet 013 gm/dL ed SerPl-m 11:20 Cnc Globuli 3.1 1.3-3.2 complet n 013 gm/dL ed Ser-mCn 11:20 c Albumin 1.3 UNK 1.1-1.8 complet /Glob 013 ed SerPl-m 11:20 Rto Bilirub 0.8 0.2-1.0 complet 013 mg/dL ed SerPl-m 11:20 Cnc AST 38 U/L 15-37 complet SerPl-c 013 ed Cnc 11:20 ALT 114 U/L 30-65 complet SerPl-c 013 ed Cnc 11:20 ALP 93 U/L 50-136 complet SerPl-c 013 ed Cnc 11:20 CBC with AUTO DIFF (05-30-2013 11:20) WBC # 05-2 9.1 4.8-10. complet Bld 013 K/MM3 8 ed Auto 11:20 RBC # 12-05-2 5.45 4.6-6.2 complet Bld 013 M/mm3 ed Auto 11:20 Hgb -05-2 17.6 14.1-18 complet Bld-mCn 013 g/dL .0 ed c 11:20 Hct Fr 05-30-2 50.7 % 42.0-52 complet Bld 013 .0 ed 11:20 MCV RBC 05-2 93.0 fl 82.2-97 complet 013 .8 ed 11:20 MCH RBC 05-30-2 32.3 pg 27-31.2 complet Qn 013 ed Auto 11:20 MEAN 05-2 34.7 31.8-35 complet CORPUSC 013 g/dl .4 ed ULAR 11:20 HGB CONC RDW RBC 05-2 14.3 % 11.5-17 complet Auto 013 .5 ed 11:20 Platele -05-2 120 142-424 complet t Bld 013 K/mm3 ed Ql 11:20 Manual MEAN 05-30-2 7.5 fl 7.4-10. complet PLATELE 013 4 ed T 11:20 VOLUME Granulo -05-2 83.4 % 37.0-80 complet cytes 013 .0 ed Fr Bld 11:20 Auto LYMPH % 12-05-2 10.7 % 10-50 complet 013 ed 11:20 Monocyt 12-05-2 4.5 % 1.7-9.3 complet es Fr 013 ed Bld 11:20 Auto Eosinop 12-05-2 1.1 % 0.1-12. complet hil Fr 013 0 ed Bld 11:20 Auto Basophi 12-05-2 0.3 % 0.1-2.0 complet ls Fr 013 ed Bld 11:20 Auto Granulo 12-05-2 7.6 1.3-8.0 complet cytes # 013 K/mm3 ed Bld 11:20 Auto Lymphoc 12-05-2 1.0 0.7-4.5 complet ytes Fr 013 K/mm3 ed Bld 11:20 Auto Monocyt 12-05-2 0.4 0.1-1.0 complet es # 013 K/mm3 ed Bld 11:20 Auto Eosinop 12-05-2 0.1 0.0-0.4 complet hil # 013 K/mm3 ed Bld 11:20 Auto Basophi 0.0 0-0.2 complet ls # 013 K/MM3 ed Bld 11:20 Auto Encounters Encounter Start End Date Code Location Performer Type Date Emergency SOCORRO Escamilla (ER) 3 11:14 3 13:45 [facility] Chad Graham
--- OUTSIDE RECORDS SUMMARY | 2017-04-06 03:47 | External Medical Summary Rpt | CCD ---
Author Author , GEORGE VAZQUEZ Address Unknown Phone [email or web address] Care Team Providers Care Older Adult Social Work Specialist Name Role Phone Chad Mariscal III, MD, Chad Escamilla III, MD Purpose Continuity of Care Document - 05-30-2013 through 2016 Problems Code Diagnosis DOS Provider Status 592.0 592.0 05-30-2013 Lazaro CALCIVAN OF [facility] Allergies, Adverse Reactions, Alerts Type Drug [...] 1999 Pnl SerPl (01-04-2017 11:10) Comment: Meter: [id number] Art Educator: [id number] [place] Glucose 122 70-130 complet BldC 017 mg/dL ed Glucomt 11:10 r-mCnc ACT Bld (01-04-2017 10:35) ACT Bld 301 82-152 complet 017 Seconds ed 10:35 Comment: Serial Number: [id number]: [id number] ACT Bld (01-04-2017 10:22) ACT Bld 257 82-152 complet 017 Seconds ed 10:22 Comment: Serial Number: [id number]: [id number] Bas Metab 2000 Pnl SerPl (01-04-2017 07:38) Comment: Meter: [id number] Art Educator: [id number] [place] Glucose 117 70-130 complet BldC 017 mg/dL ed Glucomt 07:38 r-mCnc Hgb A1c Bld (01-04-2017 07:22) Comment: The [place] [employer] recommends maintenance of Hemoglobin A1C [...] 2000 Pnl SerPl (06-24-2016 20:54) Comment: Meter: [id number] Art Educator: [id number] Zachary Zuñiga B Glucose 128 70-130 complet BldC 016 mg/dL ed Glucomt 20:54 r-mCnc Bacteria Ur Cult (06-24-2016 06:10) Bacteri [id number] complet a XXX 016 9 ed Aerobe 06:10 Normal Cult waqas SCT Comment: 20,000-30,000 CFU/mL Normal Urogenital Waqas UA Dipstick Pnl Ur (06-24-2016 06:10) Urobili 1.0 0.2 - complet nogen 016 E.U./dL 1.0 ed Ur Ql 06:10 E.U./dL Strip Nitrite [id number] Negativ complet Ur Ql 016 09 e ed Strip 06:10 Negativ e SCT Leukocy [id number] Negativ complet te 016 00 e ed esteras 06:10 Moderat e Ur Ql e number Strip.a SCT uto Prot Ur 100 Negativ complet Ql 016 mg/dL e ed Strip 06:10 (2+) Hgb Ur [id number] Negativ complet Ql 016 01 e ed Strip.a 06:10 Large uto SCT Bilirub Moderat Negativ complet Ur Ql 016 e (2+) e ed Strip 06:10 Ketones 15 Negativ complet Ur Ql 016 mg/dL e ed Strip 06:10 (1+) Glucose [id number] Negativ complet Ur 016 06 e ed Strip-m 06:10 Trace Cnc SCT Sp Gr 1.069 1.001-1 complet Ur 016 .030 ed Strip 06:10 pH Ur 6.0 5.0-8.0 complet Strip.a 016 ed uto 06:10 Clarity [id number] Clear complet Ur 016 02 ed 06:10 Turbid SCT Color [id number] Yellow, complet Ur 016 00 Red Straw [...] ne due to loaded field /HPF Bacteri [id number] None complet a Ur Ql 016 06 [...] Comment: 0.04-0.779 ng/mL: Indeterminate Range. Suspicious of [place]. Clinical correlation required. Comment: >=0.78 ng/mL: Consistent [...] Hgb A1c Bld (06-24-2016 03:27) Comment: The [place] [employer] recommends maintenance of Hemoglobin A1C [...] 016 Seconds ed 02:26 Comment: Serial Number: [id number] Art Educator: [id number] Basic metabolic 2000 panel - Serum or [...] SOCORRO Escamilla (ER) 3 11:14 3 13:45 [facility] Chad Graham
--- OUTSIDE RECORDS SUMMARY | 2017-04-06 03:48 | External Medical Summary Rpt | CCD ---
Demographics Preferred Language Ivorian Marital Status Unknown Episcopal Affiliation Unknown Race Unknown Ethnic Group Unknown Author Author , GEORGE VAZQUEZ Address Unknown Phone Immunization No patient found.
--- OUTSIDE RECORDS SUMMARY | 2017-04-06 03:48 | External Medical Summary Rpt | CCD ---
Author Author [facility] Organization [employer] Address Unknown Phone Unavailable Purpose Continuity of Care Document - through 2016
--- OUTSIDE RECORDS SUMMARY | 2017-04-06 03:48 | External Medical Summary Rpt ---
Author Author GEORGE Cason, [employer] Organization [employer] Address Unknown Phone Unavailable Results Urinalysis dipstick W Reflex Microscopic panel in Urine Observa Value Referen Units Interpr Notes Date tion ce etation Range Appeara CLEAR CLEAR No No No Mar 2 nce of informa informa informa 2016 Urine tion in tion in tion in 4:00 PM source source source data data data Bacteri TRACE O No No No Mar 27 a informa informa informa 2016 [Presen tion in tion in tion in 4:00 PM ce] in source source source Urine data data data sedimen t by Light microsc opy Bilirub NEGATIV NEG No No No Mar 2 in E informa informa informa 2016 [Presen tion in tion in tion in 4:00 PM ce] in source source source Urine data data data by Test strip Erythro TRACE-I NEG No No No Mar 2 cytes NTACT informa informa informa 2016 [Presen tion in tion in tion in 4:00 PM ce] in source source source Urine data data data Color STRAW YELLOW No No No Mar 2 of informa informa informa 2016 Urine tion in tion in tion in 4:00 PM source source source data data data Glucose NEG No High No Mar 2 [Mass/vol informati informati 2016 4:00 ume] in on in on in PM Urine by source source Test data data strip Ketones NEGATIV NEG mg/dL No No Mar 2 E informa informa 2016 [Presen tion in tion in 4:00 PM ce] in source source Urine data data by Automat ed test strip Mucus NEGATIV NEG No No No Mar 2 [Presen E informa informa informa 2016 ce] in tion in tion in tion in 4:00 PM Urine source source source sedimen data data data t by Light microsc opy Nitrite NEGATIV NEG No No No Mar 2 E informa informa informa 2016 [Presen tion in tion in tion in 4:00 PM ce] in source source source Urine data data data by Test strip pH of 5.0 - 8.5 No Normal No Mar 27 Urine informati informati 2017 4:00 on in on in PM source source data data Protein NEG mg/dL No No Mar 27 [Mass/vol informati informati 2016 4:00 ume] in on in on in PM Urine by source source Automated data data test strip Erythro 5-10 0 rbc/hpf No No Mar 27 cytes informa informa 2016 [Presen tion in tion in 4:00 PM ce] in source source Urine data data sedimen t by Light microsc opy Specific 1.005 - No Normal No Mar 27 gravity 1.030 informati informati 2016 4:00 of Urine on in on in PM source source data data Epithel OCC OCC #/hpf No No Mar 27 ial informa informa 2017 cells.s tion in tion in 4:00 PM quamous source source data data [Presen ce] in Urine sedimen t by Microsc opy high power field Urobili 0.2 NEG E.U./dL No No Mar 27 nogen informa informa 2016 [Presen tion in tion in 4:00 PM ce] in source source Urine data data by Test strip Leukocyte O wbc/hpf No No Mar 27 s informati informati 2016 4:00 [#/volume on in on in PM ] in source source Urine data data Urinalysis dipstick W Reflex Microscopic panel in Urine Observa Value Referen Units Interpr Notes Date tion ce etation Range Appeara CLEAR CLEAR No No No Mar 27 nce of informa informa informa 2016 Urine tion in tion in tion in 4:00 PM source source source data data data Bilirub NEGATIV NEG No No No Mar 27 in E informa informa informa 2016 [Presen tion in tion in tion in 4:00 PM ce] in source source source Urine data data data by Test strip Erythro TRACE-I NEG No No No Mar 27 cytes NTACT informa informa informa 2016 [Presen tion in tion in tion in 4:00 PM ce] in source source source Urine data data data Color STRAW YELLOW No No No Mar 27 of informa informa informa 2017 Urine tion in tion in tion in 4:00 PM source source source data data data Glucose NEG No High No Oct 2 [Mass/vol informati informati 2016 4:00 ume] in on in on in PM Urine by source source Test data data strip Ketones NEGATIV NEG mg/dL No No Oct 2 E informa informa 2017 [Presen tion in tion in 4:00 PM ce] in source source Urine data data by Automat ed test strip Mucus NEGATIV NEG No No No Oct 2 [Presen E informa informa informa 2016 ce] in tion in tion in tion in 4:00 PM Urine source source source sedimen data data data t by Light microsc opy Nitrite NEGATIV NEG No No No Oct 2 E informa informa informa 2016 [Presen tion in tion in tion in 4:00 PM ce] in source source source Urine data data data by Test strip pH of 5.0 - 8.5 No Normal No Oct 2 Urine informati informati 2016 4:00 on in on in PM source source data data Protein NEG mg/dL No No Oct 2 [Mass/vol informati informati 2016 4:00 ume] in on in on in PM Urine by source source Automated data data test strip Specific 1.005 - No Normal No Oct 2 gravity 1.030 informati informati 2017 4:00 of Urine on in on in PM source source data data Urobili 0.2 NEG E.U./dL No No Oct 2 nogen informa informa 2016 [Presen tion in tion in 4:00 PM ce] in source source Urine data data by Test strip Comprehensive metabolic 2000 panel in Serum or Plasma Observa Value Referen Units Interpr Notes Date tion ce etation Range Albumin/G 1.1 - 1.8 No Normal No Oct 2 lobulin informati informati 2017 1:25 [Mass on in on in PM ratio] in source source Serum or data data Plasma Albumin 3.4 - 5.0 gm/dL Normal No Oct 2 [Mass/vol informati 2017 1:25 ume] in on in PM Serum or source Plasma data Alkaline 46 - 116 U/L Normal No Oct 2 phosphata informati 2017 1:25 se on in PM [Enzymati source c data activity/ volume] in Serum or Plasma Bilirubin 0.2 - 1.0 mg/dL Normal No Oct 2 .total informati 2017 1:25 [Mass/vol on in PM ume] in source Serum or data Plasma Urea 7 - 18 mg/dL High No Oct 2 nitrogen informati 2017 1:25 [Mass/vol on in PM ume] in source Serum or data Plasma Calcium 8.5 - mg/dL Normal No Oct 2 [Mass/vol 10.1 informati 2017 1:25 ume] in on in PM Serum or source Plasma data Chloride 98 - 107 mmoL/L Normal No Oct 2 [Moles/vo informati 2017 1:25 lume] in on in PM Serum or source Plasma data Carbon 21.0 - mmoL/L Normal No Oct 2 dioxide, 32.0 informati 2017 1:25 total on in PM [Moles/vo source lume] in data Serum or Plasma Creatinin 0.70 - mg/dL High No Oct 2 e 1.30 informati 2017 1:25 [Mass/vol on in PM ume] in source Serum or data Plasma Creatinin 50 - 200 ML/MIN Normal No Oct 2 e renal informati 2017 1:25 clearance on in PM source predicted data by Cockcroft -Gault formula Estimated >60 ML/MIN No REFERENCE Oct 2 informati RANGE: 2017 1:25 glomerula on in >60 PM r source ML/MIN/1. filtratio data 73 SQUARE n rate METERSIf (GF this patient is -A merican, then multiply theresult by 1.210. Globulin 1.3 - 3.2 gm/dL Normal No Oct 2 [Mass/vol informati 2017 1:25 ume] in on in PM Serum source data Glucose 74 - 106 mg/dL High No Oct 2 [Mass/vol informati 2017 1:25 ume] in on in PM Serum or source Plasma data Potassium 3.5 - 5.1 mmoL/L Normal No Oct 2 informati 2017 1:25 [Moles/vo on in PM lume] in source Serum or data Plasma Sodium 136 - 145 mmoL/L Normal No Oct 2 [Moles/vo informati 2017 1:25 lume] in on in PM Serum or source Plasma data Aspartate 15 - 37 U/L Normal No Oct 2 informati 2017 1:25 aminotran on in PM sferase source [Enzymati data c activity/ volume] in Serum or Plasma Alanine 12 - 78 U/L Normal No Oct 2 aminotran informati 2016 1:25 sferase on in PM [Enzymati source c data activity/ volume] in Serum or Plasma Protein 6.4 - 8.2 gm/dL Normal No Mar 2 [Mass/vol informati 2016 1:25 ume] in on in PM Serum or source Plasma data CBC W Auto Differential panel in Blood Observa Value Referen Units Interpr Notes Date tion ce etation Range Basophils 0 - 0.2 K/MM3 Normal No Mar 2 informati 2016 1:25 [#/volume on in PM ] in source Blood by data Automated count Basophils 0.1 - 2.0 % Normal No Mar 2 /100 informati 2016 1:25 leukocyte on in PM s in source Blood by data Automated count Eosinophi 0.0 - 0.4 K/mm3 Normal No Mar 2 ls informati 2016 1:25 [#/volume on in PM ] in source Blood by data Automated count Eosinophi 0.1 - % Normal No Mar 27 ls/100 12.0 informati 2016 1:25 leukocyte on in PM s in source Blood by data Automated count Granulocy 1.3 - 8.0 K/mm3 High No Mar 2 valeriy informati 2016 1:25 [#/volume on in PM ] in source Blood by data Automated count Granulocy 37.0 - % High No Mar 2 valeriy/100 80.0 informati 2016 1:25 leukocyte on in PM s in source Blood by data Automated count Hematocri 42.0 - % Normal No Mar 27 t [Volume 52.0 informati 2016 1:25 on in PM Fraction] source of Blood data Hemoglobi 14.1 - g/dL Normal No Mar 27 n 18.0 informati 2016 1:25 [Mass/vol on in PM ume] in source Blood data Lymphocyt 0.7 - 4.5 K/mm3 Normal No Mar 2 es informati 2016 1:25 [#/volume on in PM ] in source Unspecifi data ed specimen by Automated count Lymphocyt 10 - 50 % Low No Mar 27 es informati 2016 1:25 [#/volume on in PM ] in source Unspecifi data ed specimen by Automated count Erythrocy 27 - 31.2 pg High No Mar 2 te mean informati 2016 1:25 corpuscul on in PM ar source hemoglobi data n [Entitic mass] Erythrocy 31.8 - g/dl Normal No Mar 27 te mean 35.4 informati 2016 1:25 corpuscul on in PM ar source hemoglobi data n concentra tion [Mass/vol ume] by Automated count Erythrocy 82.2 - fl Normal No Mar 2 te mean 97.8 informati 2016 1:25 corpuscul on in PM ar volume source [Entitic data volume] by Automated count Monocytes 0.1 - 1.0 K/mm3 Normal No Mar 2 informati 2016 1:25 [#/volume on in PM ] in source Blood by data Automated count Monocytes 1.7 - 9.3 % Normal No Mar 2 /100 informati 2017 1:25 leukocyte on in PM s in source Blood by data Automated count Platelet 7.4 - fl Normal No Mar 27 mean 10.4 informati 2016 1:25 volume on in PM [Entitic source volume] data in Blood by Automated count Platelets 142 - 424 K/mm3 Normal No Mar 2 informati 2016 1:25 [#/volume on in PM ] in source Blood data Erythrocy 4.6 - 6.2 M/mm3 Normal No Mar 2 valeriy informati 2016 1:25 [#/volume on in PM ] in source Amniotic data fluid Erythrocy 11.5 - % Normal No Mar 27 te 17.5 informati 2016 1:25 distribut on in PM ion width source [Entitic data volume] by Automated count Leukocyte 4.8 - K/MM3 High No Mar 27 s 10.8 informati 2016 1:25 [#/volume on in PM ] in source Blood data Basic metabolic panel in Blood Observa Value Referen Units Interpr Notes Date tion ce etation Range Urea 7 - 18 mg/dL High No November 16 nitrogen informati 2016 9:40 [Mass/vol on in PM ume] in source Serum or data Plasma Calcium 8.5 - mg/dL Normal No November 16 [Mass/vol 10.1 informati 2016 9:40 ume] in on in PM Serum or source Plasma data Chloride 98 - 107 mmoL/L Normal No November 16 [Moles/vo informati 2016 9:40 lume] in on in PM Serum or source Plasma data Carbon 21.0 - mmoL/L Normal No November 16 dioxide, 32.0 informati 2016 9:40 total on in PM [Moles/vo source lume] in data Serum or Plasma Creatinin 0.70 - mg/dL High No November 16 e 1.30 informati 2016 9:40 [Mass/vol on in PM ume] in source Serum or data Plasma Creatinin 50 - 200 ML/MIN Normal No November 16 e renal informati 2016 9:40 clearance on in PM source predicted data by Cockcroft -Gault formula Estimated >60 ML/MIN No REFERENCE November 16 informati RANGE: 2017 9:40 glomerula on in >60 PM r source ML/MIN/1. filtratio data 73 SQUARE n rate METERSIf (GF this patient is -A merican, then multiply theresult by 1.210. Glucose 74 - 106 mg/dL High No November 16 [Mass/vol informati 2016 9:40 ume] in on in PM Serum or source Plasma data Potassium 3.5 - 5.1 mmoL/L Normal No November 16 informati 2016 9:40 [Moles/vo on in PM lume] in source Serum or data Plasma Sodium 136 - 145 mmoL/L Normal No November 16 [Moles/vo informati 2016 9:40 lume] in on in PM Serum or source Plasma data CBC W Auto Differential panel in Blood Observa Value Referen Units Interpr Notes Date tion ce etation Range Basophils 0 - 0.2 K/MM3 Normal No November 16 informati 2016 9:40 [#/volume on in PM ] in source Blood by data Automated count Basophils 0.1 - 2.0 % Normal No November 16 informati 2016 9:40 leukocyte on in PM s in source Blood by data Automated count Eosinophi 0.0 - 0.4 K/mm3 Normal No November 16 ls informati 2016 9:40 [#/volume on in PM ] in source Blood by data Automated count Eosinophi 0.1 - % Normal No November 16 ls/100 12.0 informati 2016 9:40 leukocyte on in PM s in source Blood by data Automated count Granulocy 1.3 - 8.0 K/mm3 High No November 16 valeriy informati 2016 9:40 [#/volume on in PM ] in source Blood by data Automated count Granulocy 37.0 - % High No November 16 valeriy/100 80.0 informati 2016 9:40 leukocyte on in PM s in source Blood by data Automated count Hematocri 42.0 - % Normal No November 16 t [Volume 52.0 informati 2017 9:40 on in PM Fraction] source of Blood data Hemoglobi 14.1 - g/dL No No November 16 n 18.0 informati informati 2016 9:40 [Mass/vol on in on in PM ume] in source source Blood data data Lymphocyt 0.7 - 4.5 K/mm3 Normal No November 16 es informati 2016 9:40 [#/volume on in PM ] in source Unspecifi data ed specimen by Automated count Lymphocyt 10 - 50 % Low No November 16 es informati 2016 9:40 [#/volume on in PM ] in source Unspecifi data ed specimen by Automated count Erythrocy 27 - 31.2 pg High No November 16 te mean informati 2016 9:40 corpuscul on in PM ar source hemoglobi data n [Entitic mass] Erythrocy 31.8 - g/dl Normal No November 16 te mean 35.4 informati 2016 9:40 corpuscul on in PM ar source hemoglobi data n concentra tion [Mass/vol ume] by Automated count Erythrocy 82.2 - fl Normal No November 16 te mean 97.8 informati 2016 9:40 corpuscul on in PM ar volume source [Entitic data volume] by Automated count Monocytes 0.1 - 1.0 K/mm3 Normal No November 16 informati 2016 9:40 [#/volume on in PM ] in source Blood by data Automated count Monocytes 1.7 - 9.3 % Normal No November 16 / informati 2016 9:40 leukocyte on in PM s in source Blood by data Automated count Platelet 7.4 - fl Low No November 16 mean 10.4 informati 2016 9:40 volume on in PM [Entitic source volume] data in Blood by Automated count Platelets 142 - 424 K/mm3 Normal No November 16 informati 2016 9:40 [#/volume on in PM ] in source Blood data Erythrocy 4.6 - 6.2 M/mm3 Normal No November 16 valeriy informati 2016 9:40 [#/volume on in PM ] in source Amniotic data fluid Erythrocy 11.5 - % Normal No November 16 te 17.5 informati 2016 9:40 distribut on in PM ion width source [Entitic data volume] by Automated count Leukocyte 4.8 - K/MM3 Normal No November 16 s 10.8 informati 2016 9:40 [#/volume on in PM ] in source Blood data
--- OUTSIDE RECORDS SUMMARY | 2017-04-06 03:48 | External Medical Summary Rpt | CCD ---
Demographics Preferred Language Bur[place]ian Marital Status Unknown Bahai Affiliation Unknown Race Unknown Ethnic Group Unknown Author Author , GEORGE VAZQUEZ Address Unknown Phone Immunization No patient found.
== END 2017-03-27 17:22 | disposition home or self-care (01) ==
LOC: ER 13:28
PROVIDERS: General Practice
DX: N20.0 Calculus of kidney (principal); Z87.442 Personal history of urinary calculi; N18.3 Chronic kidney disease, stage 3 (moderate); E11.9 Type 2 diabetes mellitus without complications; I10 Essential (primary) hypertension; Z88.0 Allergy status to penicillin; E78.5 Hyperlipidemia, unspecified; Z79.82 Long term (current) use of aspirin; I25.10 Atherosclerotic heart disease of native coronary artery without angina pectoris; F17.210 Nicotine dependence, cigarettes, uncomplicated